=== PATIENT | male | born 1955 | race Caucasian/White ===

== ENCOUNTER 2017-05-14 13:27 | Inpatient (IN) | payer SELFPAY ==
[2017-05-14] MEDS ORDERED: NS 0.9% 1000 ML* 1,000 ML IV ONE ×3 (13:58→14:41)
[2017-05-14 14:26] LABS: ABS Basophils 0.1 10^3/ul (0-0.2); ABS Eosinophils 0.1 10^3/ul (0-0.6); ABS Lymphocytes 1.5 10^3/ul (1.0-4.8); ABS Monocytes 0.6 10^3/ul (0-0.8); ABS Neutrophils 4.1 10^3/ul (1.5-7.7); ABS Nucleated RBC 0 10^3/ul; Eosinophil % 1.3 % (0-6); Hematocrit 44 % (42-52); Hemoglobin 14.9 g/dl (14.0-18.0); Lymphocyte % 24.3 % (25-47); Mean Corpuscular HGB Conc 34 g/dl (31-36); Mean Corpuscular Hemoglobin 30 pg (27-31); Mean Corpuscular Volume 89 fL (80-94); Mean Platelet Volume 10 um3 (7.4-10.4); Nucleated Red Blood Cells % 0; Platelet Count 151 10^3/ul (150-450); Red Blood Count 4.91 10^6/ul (4.0-5.4); Red Cell Distribution Width 12 % (10.5-15); White Blood Count 6.3 10^3/ul (3.5-10.8)
--- NOTE | 2017-05-14 14:38 | RAD ---
Indication: Fall 2 days ago. LEFT side weakness. Recurrent fall today. Mental status change. Comparison: No relevant prior exams available on the [facility] for comparison. Technique: Noncontrast CT vertex of skull through foramen magnum. Report: Subtle ill-defined hypodensity at the posterior RIGHT frontal lobe and para midline anterior RIGHT frontal lobe white matter. Negative for sulcal effacement. Unremarkable ventricles and basal cisterns. Negative for intra or extra-axial hemorrhage or mass effect. Unremarkable visualized orbital contents. Negative for fracture or suspicious calvarial or skull base lesion. Clear visualized paranasal sinuses and mastoid air spaces. Negative for scalp hematoma. IMPRESSION: The constellation of findings is suspicious for foci of subacute ischemic infarct at the RIGHT frontal lobe involving both the anterior and middle cerebral artery distributions. Negative for mass effect or intracranial hemorrhage. Given involvement 2 vascular territories consider potential cardiac embolic source. Results discussed with Dr. Spence 05/14/2017 2:34 PM EST
[2017-05-14 14:40] LABS: EGFR Non-African American 56.3 (>60)
[2017-05-14] MEDS ORDERED: Aspirin TAB* 325 MG ONE (14:42)
[2017-05-14] MEDS: Aspirin TAB* 325 MG PO SCH (14:44)
[2017-05-14] MEDS ORDERED: Dextrose 50% Syringe 50 ML* 25 GM/50 ML SYRINGE IV PUSH PRN ×2 (15:08→15:19)
[2017-05-14] MEDS ORDERED: Insulin LISPRO* 1 UNITS UNIT SUBCUT ONE (15:08)
[2017-05-14] MEDS ORDERED: Acetaminophen TAB* 325 MG PO PRN (15:13)
[2017-05-14] MEDS ORDERED: Iodixanol* (CONTRAST) 320 MG/ML 100 ML SDV IV ONE (15:32)
[2017-05-14] MEDS ORDERED: Insulin GLARGINE(*) 1 UNITS UNIT SUBCUT SCH (16:00)
[2017-05-14] MEDS ORDERED: Labetalol IV* 5 MG/ML 20 ML VIAL ONE (16:18)
--- NOTE | 2017-05-14 16:20 | ED ---
Macie Maldonado Rebecca, scribed for Tomasz Spence MD on 05/14/17 at 1359 . Neurological HPI - HPI Summary HPI Summary: Pt is a 62 y/o M who presents to ED c/o L-sided weakness s/p fall. Pt reports that 2 days ago he had a "slow motion collapse, vertigo" with no associated head trauma. Pt c/o L-sided weakness in the UE and LE and "wobbly" gait. Describes the sensation as "toward the left I lose the ability to bear weight on the left arm and left leg." Friend additionally reports his mentation has been slow recently. This morning, the pt fell again during a evangelical service, during another "slow motion collapse" onto some chairs. Confirms he has been able to walk, despite the unsteadiness, walking to the service this morning. Does not take narcotics. PMHx DM, treated with Metformin. - History of Current Complaint Chief Complaint: EDNeurologicalDeficit Stated Complaint: VERTIGO Hx Obtained From: Patient Onset/Duration: Still Present Current Severity: None Pain Intensity: 0 Pain Scale Used: 0-10 Numeric Character: Weak - L-sided weakness, Other: - "Wobbly" gait Aggravating: Nothing Alleviating: Nothing Associated Signs and Symptoms: Positive: Unsteady Gait - "wobbly", Weakness - L- sided weakness - Allergy/Home Medications Allergies/Adverse Reactions: Allergies Allergy/AdvReac Type Severity Reaction Status Date / Time hydrochlorothiazide Allergy See Comment Verified 05/14/17 13:39 Home Medications: Home Medications Pseudoephedrine TAB* [Sudafed TAB*] 60 mg PO Q6H PRN 05/14/17 [History Confirmed 05/14/17] PMH/Surg Hx/FS Hx/Imm Hx Endocrine/Hematology History: Reports: Hx Diabetes Cardiovascular History: Reports: Hx Hypertension - Currently not on medication Denies: Hx Coronary Artery Disease Infectious Disease History: No Infectious Disease History: Denies: Traveled Outside the [place] in Last 30 Days - Family History Known Family History: Positive: Other - "long life" and "low incidence of cancer " - Social History Alcohol Use: None Substance Use Type: Reports: None Smoking Status (MU): Never Smoked Tobacco Review of Systems Positive: Other - Fall 2 days ago and today Neurological: Other - Slow mentation, "wobbly" gait Positive: Weakness - L-sided weakness All Other Systems Reviewed And Are Negative: Yes Physical Exam - Summary Physical Exam Summary: Appearance: Well-appearing, Well-nourished Skin: Warm, Dry, No rash Eyes: Normal, PERRL, EOMI, sclera anicteric ENT: Normal Neck: Supple, nontender Respiratory: Clear to auscultation Cardiovascular: S1, S2, no murmur, no rub, no gallop Abdomen: Soft, nontender, no organomegaly Bowel sounds: Present Musculoskeletal: ROM Intact, no edema, pulses symmetrical, slight weakness in the left machining associate Neurological: A&Ox3, cranial nerves II-XII WNL, follows commands, slight weakness in the left machining associate, slow on mentating and slow on responding, slightly tangential with speech Psychiatric: Odd affect, bizarre smiling while talking, dressed appropriately, judgment intact Triage Information Reviewed: Yes Vital Signs On Initial Exam: Initial Vitals Temp Pulse Resp BP Pulse Ox 97.7 F 90 17 181/78 98 05/14/17 13:34 05/14/17 13:34 05/14/17 13:34 05/14/17 13:34 05/14/17 13:34 Vital Signs Reviewed: Yes - Nancie Coma Scale Glascow Coma Scale Comments: 13: slow on responding, but he responds Diagnostics - Vital Signs Vital Signs Temp Pulse Resp BP Pulse Ox 05/14/17 13:34 97.7 F 90 17 181/78 98 - Laboratory Result Diagrams: 05/14/17 14:20 05/14/17 14:20 Lab Statement: Any lab studies that have been ordered have been reviewed, and results considered in the medical decision making process. - CT Brain CT CT Interpretation: Positive (See Comments) - The constellation of findings is suspicious for foci of subacute ischemic infarct at the RIGHT frontal lobe involving both the anterior and middle cerebral artery distributions. Negative for mass effect or intracranial hemorrhage. Given involvement 2 vascular territories consider potential cardiac embolic source. Results discussed with Dr. Spence 05/14/2017 2:[address] Spence reviewed radiology report. CT Interpretation Completed By: Radiologist - EKG 1444 Cardiac Rate: NL - 95 bpm EKG Rhythm: Sinus Rhythm EKG Interpretation: LVH Re-Evaluation - Re-Evaluation First Eval Re-Evaluation Time: 14:19 Comment: Pt has difficulty with simple calculation, seems indifferent to the fact he's in the hospital, and has odd behavior. Course/Dx - Course Assessment/Plan: Pt is a 62 y/o M who presents to ED c/o L-sided weakness s/p fall. Pt reports that 2 days ago he had a "slow motion collapse, vertigo" with no associated head trauma. Pt c/o L-sided weakness in the UE and LE and "wobbly " gait. Friend additionally reports his mentation has been slow. This morning, the pt fell again, another "slow motion collapse" onto some chairs. Confirms he has been able to walk, despite the unsteadiness, walking to a evangelical service this morning. Does not take narcotics. PMHx DM, treated with Metformin. Brain CT reveals The constellation of findings is suspicious for foci of subacute ischemic. infarct at the RIGHT frontal lobe involving both the anterior and middle cerebral artery. distributions with full findings above. EKG reveals LVH. Discussed care of pt with Dr. Saavedra (neurology) who advised ASA. Discussed care of pt with Dr. Kirk who accepts pt for admission. In the ED course, pt received fluids and ASA. Pt will be admitted with Dx of subacute CVA and hyperglycemia. He understands and agrees. Elevated BP noted. - Diagnoses Provider Diagnoses: Hyperglycemia, Subacute CVA - Physician Notifications Discussed Care Of Patient With: Giuliana Saavedra Time Discussed With Above Provider: 14:35 Instructed by Provider To: Other - Advised ASA. Discussed care of pt with Dr. Tere Kirk at 1440 who accepts pt for admission. Discharge - Discharge Plan Condition: Guarded Disposition: ADMITTED TO [facility] Referrals: No Primary Care Phys,NOPCP [Primary Care Provider] - The documentation as recorded by the Macie barr Rebecca accurately reflects the service I personally performed and the decisions made by me, Tomasz Spence MD.
[2017-05-14] MEDS: Labetalol IV* 5 MG/ML 20 ML VIAL IV PUSH PRN (16:22)
--- NOTE | 2017-05-14 16:50 | RAD ---
INDICATION: CT evidence for subacute ischemic infarct involving the RIGHT anterior and middle cerebral artery distribution corresponding with clinical presentation. COMPARISON: Noncontrast CT of the same date. TECHNIQUE: Multidetector CT images were obtained from the aortic arch to the vertex of the head with 80 mL Visipaque 320 IV contrast. Arterial phase of enhancement. Multiplanar reformation including maximum intensity projection. 3-D arterial volume rendering. Stenosis estimations based on denominator of distal arterial diameter. NECK ANGIOGRAM REPORT: Variant common origin of the LEFT common carotid and RIGHT brachiocephalic arteries from the aortic arch. Negative for ostial stenosis of the aortic arch branch vessels. Minimal calcific plaque at the RIGHT carotid bulb. Negative for RIGHT carotid stenosis. Mild calcific and noncalcific plaque at the LEFT carotid bulb and proximal internal carotid artery with only approximate 30% stenosis resulting. The patent RIGHT vertebral artery supplies the basilar artery. Markedly diminutive LEFT vertebral artery terminates at the LEFT posterior inferior cerebellar artery. C5-C6 and C6-C7 degenerative spondylosis with mild resulting central canal stenosis at C5-C6. NECK ANGIOGRAM IMPRESSION: 1. Mild atherosclerotic plaque. Negative for hemodynamic significant resulting carotid stenosis based on NASCET criteria. 2. The patent RIGHT vertebral artery supplies the basilar artery. Variant markedly diminutive LEFT vertebral artery terminates at the LEFT posterior inferior cerebellar artery. HEAD ANGIOGRAM REPORT: Patent intracranial internal carotid arteries and M1 and M2 segments of the middle cerebral arteries. Patent bilateral A1 anterior cerebral artery segments. No definitive anterior communicating artery visualized. Short segment high-grade stenosis of the RIGHT A2 segment at the level of the frontal horns of the lateral ventricles with limited flow distal to the stenosis. The LEFT A2 segment is patent. Diminutive patent basilar artery. The basilar artery terminates in the superior cerebellar arteries, a normal variant. The bilateral posterior cerebral arteries are patent and supplied by the anterior circulation via posterior communicating arteries. No intracranial aneurysm or vascular malformation evident. HEAD ANGIOGRAM IMPRESSION: 1. Short segment high-grade stenosis of the RIGHT A2 segment at the level of the frontal horns of the lateral ventricles with limited flow distal to the stenosis. 2. Negative for stenosis or occlusion of the M1 or M2 segments of the middle cerebral arteries. 3. Variant termination of the diminutive basilar artery at the superior cerebellar arteries with the patent posterior cerebral arteries supplied by the anterior circulation via patent posterior communicating arteries. CPT II: CPT II Codes: 3100F
[2017-05-14] MEDS: Atorvastatin* 80 MG TAB PO SCH (17:51)
[2017-05-14] MEDS: Insulin LISPRO* 1 UNITS UNIT SUBCUT SCH ×2 (17:51→22:10)
[2017-05-14] MEDS: NS 0.9% 1000 ML* 1,000 ML IV SCH (17:52)
--- NOTE | 2017-05-14 21:48 | HP ---
CC: Dr. Saavedra * HISTORY AND PHYSICAL: DATE OF ADMISSION: 05/14/17 PRIMARY CARE PROVIDER: None. CHIEF COMPLAINT: Falling to the left. HISTORY OF PRESENT ILLNESS: Rodolfo Lainez is a 62-year-old male with history of diabetes and hypertension for which the patient had not been routinely following with his primary care provider and treating with occasional metformin only. The patient stated that for the past 3 days, he has been dizzy and falling to the left. It started approximately 3 to 4 days of a sudden in the middle of the day when he fell first. Today, he was at religion when his friends noted that he fell again and he came into the ED for evaluation. His friends also noted that patient's mentation was " out off sorts." The patient himself does not recall to have any issues with his memory. He states that he gets dizzy when he falls to the left and when he tries to explain it, he basically is trying to explain that he is unsteady on his feet. He had been diabetic and hypertensive for several years now and he goes to [facility]. He admits to polydipsia and polyuria. He also admits to occasional blurry vision when his sugars are too high and to headaches when his blood pressure is too high. The patient is going to be admitted with a new diagnosis of ischemic CVA. PAST MEDICAL HISTORY: 1. Hypertension. 2. Diabetes. ALLERGIES: HYDROCHLOROTHIAZIDE. The patient cannot explain what happens when he takes the medication though. FAMILY HISTORY: The patient denies any history of cancer, diabetes, or heart disease in the family. SOCIAL HISTORY: The patient denies any tobacco, alcohol or drug use. He lives alone. His surrogate decision maker is his father, who lives in [place]. REVIEW OF SYSTEMS: Please see history of present illness. In addition to the above mentioned, the patient stated that he is urinating frequently and a lot. In fact, the patient needed to use a urinal in the middle of our conversation. Apart from the above mentioned and the ones mentioned in the history of present illness, all 12 systems were reviewed and otherwise negative. PHYSICAL EXAMINATION GENERAL: The patient is a very pleasant 62-year-old male, who is in no acute distress. His BMI is 28.9. The patient is alert, oriented x3. VITAL SIGNS: Blood pressure of 199/100, heart rate of 90 and regular, respiratory rate 16, oxygen saturation 95% on room air, temperature 97.7. HEENT: Head: Atraumatic, normocephalic. Eyes: Pupils are equal and reactive to light and accommodation. Oropharynx clear. Mucosa moist. NECK: Supple. No JVD. No bruits bilaterally. RESPIRATORY: Clear to auscultation bilaterally. CARDIOVASCULAR: Regular rate and rhythm. No murmur. ABDOMEN: Soft, nontender. Bowel sounds present in all 4 quadrants. EXTREMITIES: There is no edema. Pulses +2 bilaterally. No clubbing or cyanosis. NEUROLOGIC: On evaluation, speech is clear. Cranial nerves II through XII are grossly intact. Motor strength is mildly diminished in the left upper extremity. There is no diminished strength in bilateral lower extremities, but the patient has very unsteady gait and he leans to the left when walking. SKIN: On evaluation of the skin, no ecchymotic areas or rashes noted. PSYCHIATRIC: Alert and oriented x3 with no evidence of anxiety or depression. DIAGNOSTIC STUDIES/LAB DATA: Laboratory data showed white blood cell count of 6.3, hemoglobin of 14.9, hematocrit of 44, and platelets of 151. Sodium of 129, potassium of 4.8, chloride 96, carbon dioxide 27, BUN 26, creatinine 1.3. Liver function tests unremarkable. Glucose level 475. Brain CT impression: "The constellation of findings is suspicious for foci of subacute ischemic infarct in the right frontal lobe involving both the anterior and middle cerebral artery distributions. Negative for mass effect or intracranial hemorrhage. Given involvement of 2 vascular territories, consider potential cardioembolic source." The patient's EKG shows sinus tachycardia with a heart rate of 95 beats per minute with LVH, no ST changes. ASSESSMENT AND PLAN: 1. Ischemic cerebrovascular accident. The patient had right frontal ischemic cerebrovascular accident. The patient is going to be placed on inpatient admission. He had been swallowing fine during my evaluation. He does not require speech therapy evaluation. He is going to have physical therapy/ occupational therapy evaluation. He was already started on aspirin in the emergency department. Fasting lipid profile is going to be obtained in the morning. He is going to be placed on telemetry monitoring bed with neuro checks every 4 [address] I [address] ask Dr[address] Saavedra from Neurology to see the patient in consultation. We will also obtain a transthoracic echocardiogram with bubble study as well as CT angiogram of the head and neck to evaluate patient's vasculature. 2. In regards to uncontrolled diabetes, the patient's hyponatremia is most likely pseudohyponatremia due to patient's sugar level being above 400. The patient is going to be placed on Lantus as well as insulin sliding scale. Nutrition was asked to see the patient in regards to diabetic education diet. 3. In regards to patient's hypertension, the patient's systolic pressures have been in the 180s to 220 range. At this point, we will continue permissive hypertension. We will ask the nursing staff to call if his blood pressure is above 220. 4. In regards to potential dyslipidemia, fasting lipid profile is going to be obtained in the morning. 5. For DVT prophylaxis, the patient is at low risk and ambulation is going to be encouraged. 6. The patient's code status is full and his surrogate is his father. TIME SPENT: Approximately 70 minutes were spent on admission of this patient. More than half of that time was spent face to face with the patient during the interview and physical exam. [id number]/[facility] #: [id number] ADONAY
[2017-05-14] MEDS: Docusate CAP* 100 MG PO SCH (22:10)
[2017-05-15] MEDS: NS 0.9% 1000 ML* 1,000 ML IV SCH (04:41)
[2017-05-15 06:31] LABS: ABS Basophils 0.1 10^3/ul (0-0.2); ABS Eosinophils 0.2 10^3/ul (0-0.6); ABS Lymphocytes 1.9 10^3/ul (1.0-4.8); ABS Monocytes 0.4 10^3/ul (0-0.8); ABS Neutrophils 2.7 10^3/ul (1.5-7.7); ABS Nucleated RBC 0 10^3/ul; Eosinophil % 3.7 % (0-6); Hematocrit 40 % (42-52); Hemoglobin 13.6 g/dl (14.0-18.0); Lymphocyte % 35.9 % (25-47); Mean Corpuscular HGB Conc 34 g/dl (31-36); Mean Corpuscular Hemoglobin 30 pg (27-31); Mean Corpuscular Volume 89 fL (80-94); Mean Platelet Volume 10 um3 (7.4-10.4); Nucleated Red Blood Cells % 0; Platelet Count 143 10^3/ul (150-450); Red Cell Distribution Width 12 % (10.5-15); White Blood Count 5.3 10^3/ul (3.5-10.8)
[2017-05-15 06:42] LABS: EGFR Non-African American 79.9 (>60)
[2017-05-15] MEDS: Labetalol IV* 5 MG/ML 20 ML VIAL IV PUSH PRN (08:07)
[2017-05-15] MEDS: Docusate CAP* 100 MG PO SCH ×2 (08:08→20:24)
[2017-05-15] MEDS: Aspirin TAB* 325 MG PO SCH (08:08)
[2017-05-15] MEDS: Insulin LISPRO* 1 UNITS UNIT SUBCUT SCH ×4 (08:20→20:24)
[2017-05-15] MEDS: amLODIPine TAB* 5 MG PO SCH (11:00)
[2017-05-15] MEDS: Clopidogrel TAB* 75 MG PO SCH (12:45)
--- NOTE | 2017-05-15 15:52 | PN ---
Subjective Date of Service: 05/15/17 Interval History: Pt feels well, still unsteady on his feet Objective Active Medications: Acetaminophen (Tylenol Tab*) 650 mg PO Q4H PRN PRN Reason: FEVER/PAIN Amlodipine Besylate (Norvasc Tab*) 5 mg PO DAILY [facility] Last Admin: 05/15/17 11:00 Dose: 5 mg Aspirin (Aspirin Tab*) 325 mg PO DAILY [facility] Last Admin: 05/15/17 08:08 Dose: 325 mg Atorvastatin Calcium (Lipitor*) 80 mg PO 1700 [facility] Last Admin: 05/14/17 17:51 Dose: 80 mg Clopidogrel Bisulfate (Plavix Tab*) 75 mg PO DAILY [facility] Last Admin: 05/15/17 12:45 Dose: 75 mg Dextrose (D50w Syringe 50 Ml*) 12.5 gm IV PUSH .FOR FS < 60 - SS PRN PRN Reason: FS < 60 Dextrose (D50w Syringe 50 Ml*) 12.5 gm IV PUSH .FOR FS < 60 - SS PRN PRN Reason: FS < 60 Docusate Sodium (Colace Cap*) 100 mg PO BID [facility] Last Admin: 05/15/17 08:08 Dose: 100 mg Insulin Glargine (Lantus(*)) 15 units SUBCUT Q24H [facility] Insulin Human Lispro (Humalog*) 0 units SUBCUT ACHS [facility] PRN Reason: Protocol Last Admin: 05/15/17 12:45 Dose: 6 unit Labetalol HCl (Trandate Iv*) 5 mg IV PUSH Q6H PRN PRN Reason: BLOOD PRESSURE Last Admin: 05/15/17 08:07 Dose: 5 mg Vital Signs - 8 hr 05/15/17 05/15/17 08:00 11:01 Temperature 96.9 F Pulse Rate 78 Respiratory 16 16 Rate Blood Pressure 197/99 (mmHg) O2 Sat by Pulse 99 Oximetry Oxygen Devices in Use Now: None Appearance: 62 yo M in NAD, AAOx3 Eyes: No Scleral Icterus, PERRLA Ears/Nose/Mouth/Throat: NL Teeth, Lips, Gums, Mucous Membranes Moist Neck: NL Appearance and Movements; NL JVP, Trachea Midline Respiratory: Symmetrical Chest Expansion and Respiratory Effort, Clear to Auscultation Cardiovascular: NL Sounds; No Murmurs; No JVD, RRR Abdominal: NL Sounds; No Tenderness; No Distention Lymphatic: No Cervical Adenopathy Extremities: No Edema, No Clubbing, Cyanosis Skin: No Rash or Ulcers, No Nodules or Sclerosis Neurological: Alert and Oriented x 3, - - minimla left upper and lower extremity weakness, wide unsteady gait, speech clear, CN2-12 intact Result Diagrams: 05/15/17 06:15 05/15/17 06:15 Assess/Plan/Problems-Billing Assessment: 62 yo M with h/o DM, HTN with medical noncompliance presents with ischemic CVA - Patient Problems (1) CVA (cerebral vascular accident) Comment: ichemic, frontal. MRI for tomorrow CTA shows A2 stenosis. D/w Dr. Saavedra -cont ASA, added Plavix Echo in aM (2) Dyslipidemia Comment: lipitor started at admission (3) HTN (hypertension) Comment: SBP in 200's -will start Norvasc and start bringing it down slowly (4) DM2 (diabetes mellitus, type 2) Comment: HbA1C 12 cont ISS and Lantus. will start glipizide (5) DVT prophylaxis Comment: HSQ Status and Disposition: inpatient
[2017-05-15] MEDS: Insulin GLARGINE(*) 1 UNITS UNIT SUBCUT SCH (17:05)
[2017-05-15] MEDS: Atorvastatin* 80 MG TAB PO SCH (17:09)
[2017-05-15] MEDS: glipiZIDE TAB* 5 MG PO SCH (17:10)
--- NOTE | 2017-05-15 21:27 | CONS ---
CONSULTATION REPORT: DATE OF CONSULT: 05/15/17 LOCATION: He is currently in room 448, bed 2. PRIMARY CARE PROVIDER: He has no primary care provider. ATTENDING IN THE HOSPITAL: Dr. Tere Kirk. REASON FOR CONSULT: Falling to the left, left-sided weakness. HISTORY OF PRESENT ILLNESS: Mr. 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 He has a history of diabetes and hypertension and does not follow with a primary care provider regularly. He does take metformin occasionally, but not consistently. He states that he has been in his usual state of health when on , he was in the library and he suddenly fell to the left. He stated when he tried to get up, he could not. He was put in a whee lchair, taken home, and over the next day improved somewhat. He denied any headache, vision changes, speech difficulty. He denied any right-sided symptoms. He had no numbness or tingling in the left other than some diabetic peripheral neuropathy that he has had for a long time. He denied any nausea , vomiting, diarrhea, or constipation. He had no ringing in his ears or hearing loss. He noted no v ertigo, the room was not spinning. He states that he did feel weak in his left arm and leg, but when he got home, he was able to raise them antigravity and he felt stronger. On Tuesday, he improved, he had no new symptoms, but Tuesday, he was [facility] [employer], tried to go up to the front and had a diffic ult time ambulating up to the front without a rail. When he got up there, he seemed somewhat confuse d and had a difficult time coming down from the rail and he was subsequently brought to the ER. I di d speak with some friends of his today, who states that yesterday, he was much more confused, today h e is better, but he still does not seem himself. He seems to have a poor recall of these events, alt alonzo when reminded, he does remember them and is able to provide some details. He states that he no rmally goes to the [facility] in [place] when he needs acute care, but does not go regularly. He als o notes that he occasionally has blurry vision, but none currently. He notes that his blood pressure s run high at home and he sometimes gets headache from those. In the ER, he did have a head CT done. I did personally review the films, agreed with the finding. It appears that there is an area of hy perdensity in the right frontal lobe concerning for a new stroke, possibly involving both anterior an d middle cerebral artery distributions. He did have a head CTA done, I personally reviewed the films , shows short-segment high- grade stenosis of the right A2 segment at the level of the frontal horns of the lateral ventricle with limited flow distal to the stenosis, no M1 or M2 segment stenosis, vari ant termination of the diminutive basilar artery at the superior cerebellar arteries with patent post erior cerebral artery supplied by the anterior circulation via patent posterior communicating arterie s. Notable on admission, his blood sugar was 437, hemoglobin A1c of 12.0, subsequent blood sugars akins ve improved, most recently 246. He states that he does feel better today with no new issues, specifi lester denies any chest pain or palpitations as well. Has no history of cardiac issues. PAST MEDICAL HISTORY: As noted above. PAST SURGICAL HISTORY: He states that he personally excised a small tumor on his left index finger. FAMILY HISTORY: His paternal uncle had a stroke. No other family history of heart disease or other medical problems. SOCIAL HISTORY: Previous tobacco use, intermittent, quit about 3 years ago. No alcohol or drug use. He lives by himself. He does have some friends that help take care of him at times. REVIEW OF SYSTEMS: Fourteen-organ systems as noted above. Also polydipsia and polyuria; otherwise, negative. PHYSICAL EXAM: Vital Signs: Afebrile, current temp of 96.9, pulse rate in the 70s to 80s, respirato ry rate in the 16 to 20 range, pulse ox of 96% to 99%, blood pressures have been 142/80 to 186/93 to 210/96 to 197/99. In general, he is a well- nourished, well-developed gentleman, in no acute distres s. He is sitting in his hospital bed, some friends were at the bedside. HEENT: Normocephalic, atra umatic. Sclerae are anicteric. Mucous membranes are moist. Oropharynx is clear. Nares are patent. Neck is supple. No thyromegaly. No carotid bruits. No meningismus. Chest: Clear to auscultation bilaterally. Cardiovascular: Regular rate and rhythm without murmurs. Abdomen: Nontender. Extrem ities: No clubbing, cyanosis, or edema. He does have a mild excoriation lesion on his left knee, wh ich is healing. On neurologic exam, he is awake, alert, and oriented x3. His speech is full and the re is no dysarthria. Repetition is intact. Recall of recent event is somewhat impaired, although he does recall with cueing the events of the last several days. His cranial nerves, pupils are equal, round, and reactive to light. Extraocular muscles are intact. Visual vallejo are full. No nystagmus is appreciated. Face is symmetric. Facial sensation is intact bilaterally. Tongue is midline. Hea ring is intact bilaterally. Palate raises symmetrically. Sternocleidomastoid and trapezius 5/5. Mot or Exam: He spontaneously moves all extremities antigravity. He is 5/5 on the right. In the left u pper extremity, he is 4+/5 proximally, 4+/5 distally in the left upper extremity with some very subtl e drift. In the left lower extremity, he is 4+/5 proximally and distally with subtle drift. On the right lower extremity, he has 5/5 tone and bulk, both normal. Sensation: He has loss of all modaliti es in the feet to the shins bilaterally; otherwise, intact. Pzydjn-bi-bwxb, rapid alternating moveme nts, there is some mild intention tremor bilaterally. There is no evidence of dysdiadochokinesia or dysmetria. Zmqh-do-oxeg and igovzs-xf-symr are both intact. DTRs are 1+ and symmetric in the upper extremities, 2+ at the right patella, 3+ at the left patella, trace at the ankles bilaterally, downgo ing Babinski's. Gait: He is slightly wide based, although he is able to stand and his Romberg had n o sway with eyes open, minimal sway with eyes closed. He was able to ambulate without difficulty by himself. DIAGNOSTIC STUDIES/LAB DATA: Imaging as noted above. Additional lab work includes a CBC with diff with a hemoglobin of 13.6, hematocrit of 40, platelet co unt of 143, lymphocyte percent of 24.3. Carbon monoxide screen less than 4. His triglycerides of 19 0, cholesterol of 263, LDL of 194, HDL of 41.4. His hemoglobin A1c was 12.0. ASSESSMENT: Mr. Lainez is a 62-year-old gentleman with a history of hypertension and diabetes, poor ly controlled. His hemoglobin A1c is elevated. His blood pressures have been elevated. He presents to the hospital with most likely a right anterior cerebral artery distribution stroke with resultant left-sided weakness and gait difficulty. I see no evidence for a cerebellar stroke on the left, alt alonzo MRI is pending, we will get that tomorrow. CT angiogram shows high-grade stenosis at the right A2 segment. PLAN: 1. Continue aspirin. We will add Plavix. I would like him to be on dual- antiplatelet therapy give n the high-grade stenosis. 2. Blood pressure control. I would slowly lower his blood pressure, but I would keep it at the high normal limit given the high-grade stenosis in his anterior circulation, precipitous drops in his blo od pressure could cause worsening ischemic damage in that distribution. 3. High blood sugar control. I defer to his treating hospitalist. 4. He is a nonsmoker. 5. He is now on statin, high dose, 80 mg of Lipitor. Goal LDL will be less than 70. 6. He will need physical therapy, although he does seem improved today, we will get them to evaluate . 7. He will need Social Work help given the fact that he lives alone and has no insurance with [employer] income. The plan will be to get an MRI tomorrow to confirm his stroke. 8. Echocardiogram today to look for any embolic source of stroke. We will continue to follow him cl osely in the hospital and make further recommendations as necessary. Thank you for the opportunity to participate in the care of this very interesting patient. [id number]/[facility] #: [id number]
--- NOTE | 2017-05-16 05:50 | PN ---
Subjective Date of Service: 05/16/17 Interval History: No new issues overnight. The patient is sitting comfortably in bed, reading on his computer. Denies any complaints. States that he has been ambulating to the bathroom and not feeling like he is going to fall over. Denies any headache , right sided symptoms, new numbness, tingling or weakness. Objective Active Medications: Acetaminophen (Tylenol Tab*) 650 mg PO Q4H PRN PRN Reason: FEVER/PAIN Amlodipine Besylate (Norvasc Tab*) 5 mg PO DAILY [facility] Last Admin: 05/15/17 11:00 Dose: 5 mg Aspirin (Aspirin Tab*) 325 mg PO DAILY [facility] Last Admin: 05/15/17 08:08 Dose: 325 mg Atorvastatin Calcium (Lipitor*) 80 mg PO 1700 [facility] Last Admin: 05/15/17 17:09 Dose: 80 mg Clopidogrel Bisulfate (Plavix Tab*) 75 mg PO DAILY [facility] Last Admin: 05/15/17 12:45 Dose: 75 mg Dextrose (D50w Syringe 50 Ml*) 12.5 gm IV PUSH .FOR FS < 60 - SS PRN PRN Reason: FS < 60 Dextrose (D50w Syringe 50 Ml*) 12.5 gm IV PUSH .FOR FS < 60 - SS PRN PRN Reason: FS < 60 Docusate Sodium (Colace Cap*) 100 mg PO BID [facility] Last Admin: 05/15/17 20:24 Dose: 100 mg Glipizide (Glucotrol Tab*) 2.5 mg PO 0800,1700 [facility] Last Admin: 05/15/17 17:10 Dose: 2.5 mg Insulin Glargine (Lantus(*)) 15 units SUBCUT Q24H [facility] Last Admin: 05/15/17 17:05 Dose: 15 units Insulin Human Lispro (Humalog*) 0 units SUBCUT ACHS [facility] PRN Reason: Protocol Last Admin: 05/15/17 20:24 Dose: 2 unit Labetalol HCl (Trandate Iv*) 5 mg IV PUSH Q6H PRN PRN Reason: BLOOD PRESSURE Last Admin: 05/15/17 08:07 Dose: 5 mg Vital Signs 05/15/17 05/15/17 05/15/17 07:40 08:00 11:01 Temperature 97.8 F 96.9 F Pulse Rate 74 78 Respiratory 16 16 16 Rate Blood Pressure 210/96 197/99 (mmHg) O2 Sat by Pulse 96 99 Oximetry 05/15/17 05/15/17 05/15/17 15:22 19:24 20:00 Temperature 98.6 F 99.1 F Pulse Rate 95 86 Respiratory 20 20 20 Rate Blood Pressure 179/73 166/75 (mmHg) O2 Sat by Pulse 96 95 Oximetry 05/16/17 00:02 Temperature 98.4 F Pulse Rate 74 Respiratory 20 Rate Blood Pressure 160/71 (mmHg) O2 Sat by Pulse 96 Oximetry Oxygen Devices in Use Now: None Neurology Exam: General: Awake, Alert, Oriented x3 HEENT: Normocephalic/atraumatic, sclera anicteric, mucous membranes moist Neck: Supple Chest: Clear to auscultation bilaterally Cardiovascular: Regular rate and rhythm without murmurs, rubs, gallops Abdomen: Soft, nontender/nondistended Extremities: No edema Neurological Findings: Awake, Alert, Oriented x3 Speech: fluent without dysarthria Cranial Nerve: PEERL, EOM intact, VFF, no nystagmus, face symmetric bilaterally , facial sensation intact, hearing intact to finger rub bilaterally, palate elevates symmetrically, tongue midline. Motor: 5/5 throughout, proximal and distal extremities x4 tone/bulk normal, no drift Sensation: Loss of all modalities in the feet to shins bilaterally, otherwise intact to LT/PP Deep Tendon Reflex: 1+ symmetric in the upper/lower extremities, trace at ankles Finger to nose, rapid alternating movements intact without tremor Result Diagrams: 05/15/17 06:15 05/15/17 06:15 Assessment/Plan Mr. Lainez is a 62-year-old gentleman with a history of hypertension and diabetes, poorly controlled. He presents to the hospital with most likely a right anterior cerebral artery distribution stroke with resultant left-sided weakness and gait difficulty. CT angiogram shows high-grade stenosis at the right A2 segment. - Patient Problems (1) CVA (cerebral vascular accident) Current Visit: Yes Status: Acute Priority: High Code(s): I63.9 - CEREBRAL INFARCTION, UNSPECIFIED SNOMED Code(s): 552501945 Comment: --MRI this am --Echo today --Continue ASA/Plavix: dual antiplatelet given high grade stenosis --High dose statin --Slowly lower BPs, maintain baseline in high normal range 130s/80s, given high grade stenosis --Labs to rule out reversible causes of stroke --PT/OT --Social work for discharge planning
[2017-05-16] MEDS: Clopidogrel TAB* 75 MG PO SCH (08:31)
[2017-05-16] MEDS: glipiZIDE TAB* 5 MG PO SCH ×2 (08:31→17:11)
[2017-05-16] MEDS: Insulin LISPRO* 1 UNITS UNIT SUBCUT SCH ×4 (08:31→20:47)
[2017-05-16] MEDS: amLODIPine TAB* 5 MG PO SCH (08:31)
[2017-05-16] MEDS: Aspirin TAB* 325 MG PO SCH (08:31)
[2017-05-16] MEDS: Docusate CAP* 100 MG PO SCH ×2 (08:32→20:50)
--- NOTE | 2017-05-16 12:10 | ECHO ---
Patient: SUSHIL DUBOSE [facility] Rec#: [id number] : 1955 Date: 05/16/2017 Age: 62y Height: 172.72 cm / 68.0 in Weight: 86.18 kg / 189.9 lbs Sex: M BSA: 2 Room#: [facility] Admit Date#: 05/14/2017 Type: Inpatient Referring: Tere Kirk MD Reading: Eladio Tidwell MD [employer] Estimator: Rosalba Velasquez RD,RDMS Transthoracic Echocardiogram Indication: CVA BP: 178/88 HR: 84 Rhythm: NSR Findings History: Previously healthy Technical Comments: The study quality is good. Left Ventricle: The left ventricular chamber size is normal. Mild to moderate concentric left ventricular hypertrophy is observed. Global left ventricular wall motion and contractility are within normal limits. There is normal left ventricular systolic function. The estimated ejection fraction is 55-60%. There is an E to A reversal in the mitral valve flow pattern suggestive of diastolic dysfunction. Left Atrium: The left atrial chamber size is normal. Right Ventricle: The right ventricular chamber size and systolic function are within normal limits. Right Atrium: The right atrial cavity size is normal. The bubble study is negative. A patent foramen ovale is not demonstrated with color Doppler and agitated contrast. Aortic Valve: The aortic valve is trileaflet. Systolic excursion of the aortic valve is normal. There is no evidence of aortic regurgitation. There is no evidence of aortic stenosis. Mitral Valve: The mitral valve leaflets appear normal. There is a trace of mitral regurgitation. There is no evidence of mitral stenosis. Tricuspid Valve: The tricuspid valve leaflets are normal. There is trace tricuspid regurgitation. Unable to estimate the right ventricular systolic pressure. Pulmonic Valve: The pulmonic valve appears normal. There is a trace pulmonic regurgitation. Pericardium: There is no significant pericardial effusion. Aorta: The aortic root appears normal. There is no dilatation of the aortic arch. Pulmonary Artery: The main pulmonary artery appears normal. Venous: The inferior vena cava appears normal in size. There is an approximate 50% respiratory change in the inferior vena cava dimension. Contrast: Intravenous agitated saline contrast was used to assess intracardiac shunting. Images 46 and 47 Conclusions Mild to moderate concentric left ventricular hypertrophy is observed. Global left ventricular wall motion and contractility are within normal limits. There is normal left ventricular systolic function. The estimated ejection fraction is 55-60%. A patent foramen ovale is not demonstrated with color Doppler and agitated contrast. There is no evidence of aortic stenosis. There is a trace of mitral regurgitation. There is trace tricuspid regurgitation. Unable to estimate the right ventricular systolic pressure. There is no significant pericardial effusion. Measurements Name Value Normal Range RVIDd (AP) 2D 2.8 cm (0.9 - 2.6) RVDdMajor (2D) 2.8 cm (2.2 - 4.4) RAd ISD 4CH 4.5 cm (3.4 - 4.9) RA (A4C)W 4.1 cm (2.9 - 4.6) IVSd (2D) 1.5 cm (0.6 - 1) LVPWd (2D) 1.6 cm (0.6 - 1) LVIDd (2D) 4.2 cm (3.6 - 5.4) LVIDs (2D) 2.2 cm - LV FS (2D) 46 % (25 - 45) Aortic Annulus 2.1 cm (1.4 - 2.6) Ao root diameter (2D) 2.7 cm (2.1 - 3.5) Ascending Ao 2.9 cm (2.1 - 3.4) Aortic arch 2.9 cm (1.8 - 3.4) LA dimension (AP) 2D 4.3 cm (2.3 - 3.8) LAd ISD 4CH 4.8 cm (2.9 - 5.3) LA ISD 4CH W 4.2 cm (2.5 - 4.5) Name Value Normal Range LA ESV SP 4CH (A/L) 58.98 ml - LA ESV SP 2CH (A/L) 42.06 ml - LA ESV BP (A/L) 52.32 ml - LA ESV BP (A/L) index 26 ml/m2 - LA ESV SP 4CH (MOD) 54.01 ml - LA ESV SP 2CH (MOD) 39.26 ml - LV EDV SP 4CH (MOD) 59.57 ml - LV ESV SP 4CH (MOD) 17.83 ml - EF SP 4CH (MOD) 70.06 % - LV EDV SP 2CH (MOD) 43.37 ml - LV ESV SP 2CH (MOD) 19.73 ml - EF SP 2CH (MOD) 54.51 % - LV EDV BP 55.32 ml - LV ESV BP 19.09 ml - BP EF (MOD) 65 % - Name Value Normal Range MV E-wave Vmax 0.6 m/sec - MV deceleration time 184 msec - MV A-wave Vmax 0.9 m/sec - MV E:A ratio 0.7 ratio - P. vein S-wave Vmax 0.6 m/sec - P. vein D-wave Vmax 0.3 m/sec - P. vein S:D Vmax ratio 1.8 ratio - P. vein A-wave duration 105 msec - LV lateral e' Vmax 0.06 m/sec - LV E:e' lateral ratio 10 ratio - Name Value Normal Range AV Vmax 1.3 m/sec - AV VTI 23.5 cm - AV peak gradient 7 mmHg - AV mean gradient 4 mmHg - LVOT Vmax 1.1 m/sec - LVOT VTI 20 cm - LVOT peak gradient 5 mmHg - LVOT mean gradient 2.7 mmHg - JANA Vmax 0.9 m/sec - Name Value Normal Range RAP 8 mmHg - IVC diameter 1.7 cm - Name Value Normal Range PV Vmax 1 m/sec - PV peak gradient 4 mmHg -
--- NOTE | 2017-05-16 12:12 | RAD ---
HISTORY: Right frontal stroke COMPARISONS: Head CT dated May 14, 2012 TECHNIQUE: The following sequences were obtained of the head: Sagittal T1-weighted images, axial T2-weighted images, axial FLAIR images, axial susceptibility weighted images, axial T1-weighted images. Additionally, axial diffusion-weighted images were obtained with calculated apparent diffusion coefficients. FINDINGS: HEMORRHAGE/INFARCT: There are multiple scattered and confluent foci of restricted diffusion of the right frontal and anterior parietal lobes within the right MEGAN territory consistent with subacute nonhemorrhagic infarct. Elsewhere, there is no hemorrhage or acute infarct. MASSES/SHIFT: There is no mass or shift. EXTRA-AXIAL SPACES/MENINGES: There are no extra-axial fluid collections. SULCI AND VENTRICLES: The sulci and ventricles are normal in size and position for the patient's stated age. CEREBRUM: There is elevated T2/FLAIR signal within the right frontal and anterior parietal lobes corresponding to there is restricted diffusion. BRAINSTEM: There are no focal parenchymal abnormalities. CEREBELLUM: There is a chronic appearing infarct of the right cerebellar hemisphere. The cerebellar tonsils are normal in size and position. SELLA: The sella is normal. PINEAL: The pineal region is clear. CP ANGLE/TEMPORAL BONES: The labyrinthine structures are grossly normal. VESSELS: Normal flow-voids are noted within the visualized vertebral vasculature. DIFFUSION ABNORMALITIES: As noted above, there are multiple foci of restricted diffusion within the right frontal and parietal lobes corresponding to the right anterior cerebral artery distribution PARANASAL SINUSES/MASTOIDS: The paranasal sinuses are clear. ORBITS: The orbits are unremarkable. BONES AND SOFT TISSUE: No bone or soft tissue abnormalities are noted. OTHER: None IMPRESSION: MULTIPLE FOCI OF RESTRICTED DIFFUSION CONSISTENT WITH SUBACUTE NONHEMORRHAGIC INFARCTS OF THE RIGHT FRONTAL AND ANTERIOR PARIETAL LOBES CORRESPONDING TO THE RIGHT ANTERIOR CEREBRAL ARTERY DISTRIBUTION
--- NOTE | 2017-05-16 15:20 | PN ---
Subjective Date of Service: 05/16/17 Interval History: Feels well today. PT cleared to ambulate with a walker Objective Active Medications: Acetaminophen (Tylenol Tab*) 650 mg PO Q4H PRN PRN Reason: FEVER/PAIN Amlodipine Besylate (Norvasc Tab*) 10 mg PO DAILY [facility] Aspirin (Aspirin Tab*) 325 mg PO DAILY [facility] Last Admin: 05/16/17 08:31 Dose: 325 mg Atorvastatin Calcium (Lipitor*) 80 mg PO 1700 [facility] Last Admin: 05/15/17 17:09 Dose: 80 mg Clopidogrel Bisulfate (Plavix Tab*) 75 mg PO DAILY [facility] Last Admin: 05/16/17 08:31 Dose: 75 mg Dextrose (D50w Syringe 50 Ml*) 12.5 gm IV PUSH .FOR FS < 60 - SS PRN PRN Reason: FS < 60 Docusate Sodium (Colace Cap*) 100 mg PO BID [facility] Last Admin: 05/16/17 08:32 Dose: Not Given Glipizide (Glucotrol Tab*) 2.5 mg PO 0800,1700 [facility] Last Admin: 05/16/17 08:31 Dose: 2.5 mg Insulin Glargine (Lantus(*)) 15 units SUBCUT Q24H [facility] Last Admin: 05/15/17 17:05 Dose: 15 units Insulin Human Lispro (Humalog*) 0 units SUBCUT ACHS [facility] PRN Reason: Protocol Last Admin: 05/16/17 12:50 Dose: 2 unit Labetalol HCl (Trandate Iv*) 5 mg IV PUSH Q6H PRN PRN Reason: BLOOD PRESSURE Last Admin: 05/15/17 08:07 Dose: 5 mg Oseltamivir Phosphate (Tamiflu Cap*) 75 mg PO Q24H [facility] Stop: 05/25/17 15:01 Vital Signs - 8 hr 05/16/17 05/16/17 05/16/17 07:31 08:00 10:51 Temperature 98.5 F 98.0 F Pulse Rate 78 85 Respiratory 18 16 18 Rate Blood Pressure 170/111 162/122 (mmHg) O2 Sat by Pulse 98 98 Oximetry Oxygen Devices in Use Now: None Appearance: 62 yo M in NAD, AAOx3 Eyes: No Scleral Icterus, PERRLA Ears/Nose/Mouth/Throat: NL Teeth, Lips, Gums, Mucous Membranes Moist Neck: NL Appearance and Movements; NL JVP, Trachea Midline Respiratory: Symmetrical Chest Expansion and Respiratory Effort, Clear to Auscultation Cardiovascular: NL Sounds; No Murmurs; No JVD, RRR Abdominal: NL Sounds; No Tenderness; No Distention, No Hepatosplenomegaly Lymphatic: No Cervical Adenopathy Extremities: No Edema, No Clubbing, Cyanosis Skin: No Rash or Ulcers, No Nodules or Sclerosis Neurological: Alert and Oriented x 3, - - minimal left sided weakness in UE and LE Result Diagrams: 05/15/17 06:15 05/15/17 06:15 Assess/Plan/Problems-Billing Mr. Lainez is a 62-year-old gentleman with a history of hypertension and diabetes, poorly controlled. He presents to the hospital with most likely a right anterior cerebral artery distribution stroke with resultant left-sided weakness and gait difficulty. CT angiogram shows high-grade stenosis at the right A2 segment. - Patient Problems (1) CVA (cerebral vascular accident) Comment: MRI this am showed multiple CVA's in R hemisphere-likely thromboembolic Echo showed EF 55-60% no PFO Continue ASA/Plavix: dual antiplatelet given high grade stenosis High dose statin --Labs to rule out reversible causes of stroke --Social work for discharge planning (2) Dyslipidemia Comment: lipitor started at admission (3) HTN (hypertension) Comment: Norvasc will be increased today (4) DM2 (diabetes mellitus, type 2) Comment: HbA1C 12 started glipizide (5) DVT prophylaxis Comment: HSQ Status and Disposition: inpatient. PT cleared to go home with PT, but pt lives on [address]rd floor and has no insurance Pt has h/o contact with Flu positive person and will start Influenza prophylaxis with Tamiflu
[2017-05-16] MEDS: Insulin GLARGINE(*) 1 UNITS UNIT SUBCUT SCH (17:11)
[2017-05-16] MEDS: Oseltamivir CAP* 75 MG CAP PO SCH (17:11)
[2017-05-16] MEDS: Atorvastatin* 80 MG TAB PO SCH (17:11)
[2017-05-17] MEDS: Aspirin TAB* 325 MG PO SCH (08:03)
[2017-05-17] MEDS: Insulin LISPRO* 1 UNITS UNIT SUBCUT SCH ×4 (08:04→23:28)
[2017-05-17] MEDS: Clopidogrel TAB* 75 MG PO SCH (08:04)
[2017-05-17] MEDS: amLODIPine TAB* 5 MG PO SCH (08:04)
[2017-05-17] MEDS: glipiZIDE TAB* 5 MG PO SCH ×2 (08:04→16:44)
[2017-05-17] MEDS: Docusate CAP* 100 MG PO SCH ×2 (08:05→21:30)
[2017-05-17] MEDS: Lisinopril TAB* 10 MG PO SCH (09:58)
[2017-05-17] MEDS: Oseltamivir CAP* 75 MG CAP PO SCH (15:04)
--- NOTE | 2017-05-17 16:10 | PN ---
Subjective Date of Service: 05/17/17 Interval History: Pt feels better everyday. PT ongoing, unable to do stairs by himself Objective Active Medications: Acetaminophen (Tylenol Tab*) 650 mg PO Q4H PRN PRN Reason: FEVER/PAIN Amlodipine Besylate (Norvasc Tab*) 10 mg PO DAILY COUNT INCLUDES THE [facility] Last Admin: 05/17/17 08:04 Dose: 10 mg Aspirin (Aspirin Tab*) 325 mg PO DAILY COUNT INCLUDES THE [facility] Last Admin: 05/17/17 08:03 Dose: 325 mg Atorvastatin Calcium (Lipitor*) 80 mg PO 1700 COUNT INCLUDES THE [facility] Last Admin: 05/16/17 17:11 Dose: 80 mg Clopidogrel Bisulfate (Plavix Tab*) 75 mg PO DAILY COUNT INCLUDES THE [facility] Last Admin: 05/17/17 08:04 Dose: 75 mg Dextrose (D50w Syringe 50 Ml*) 12.5 gm IV PUSH .FOR FS < 60 - SS PRN PRN Reason: FS < 60 Docusate Sodium (Colace Cap*) 100 mg PO BID COUNT INCLUDES THE [facility] Last Admin: 05/17/17 08:05 Dose: Not Given Glipizide (Glucotrol Tab*) 5 mg PO 0800,1700 COUNT INCLUDES THE [facility] Insulin Glargine (Lantus(*)) 15 units SUBCUT Q24H COUNT INCLUDES THE [facility] Stop: 05/17/17 23:59 Last Admin: 05/16/17 17:11 Dose: 15 units Insulin Human Lispro (Humalog*) 0 units SUBCUT ACHS COUNT INCLUDES THE [facility] PRN Reason: Protocol Last Admin: 05/17/17 11:59 Dose: 4 unit Labetalol HCl (Trandate Iv*) 5 mg IV PUSH Q6H PRN PRN Reason: BLOOD PRESSURE Last Admin: 05/15/17 08:07 Dose: 5 mg Lisinopril (Prinivil Tab*) 10 mg PO DAILY COUNT INCLUDES THE [facility] Last Admin: 05/17/17 09:58 Dose: 10 mg Oseltamivir Phosphate (Tamiflu Cap*) 75 mg PO Q24H COUNT INCLUDES THE [facility] Stop: 05/25/17 15:01 Last Admin: 05/17/17 15:04 Dose: 75 mg Vital Signs - 8 hr 05/17/17 11:06 Temperature 97.0 F Pulse Rate 81 Respiratory 16 Rate Blood Pressure 137/75 (mmHg) O2 Sat by Pulse 98 Oximetry Oxygen Devices in Use Now: None Appearance: 62 yo M in nAD, AAOx3 Eyes: No Scleral Icterus, PERRLA Ears/Nose/Mouth/Throat: NL Teeth, Lips, Gums, Mucous Membranes Moist Neck: NL Appearance and Movements; NL JVP, Trachea Midline Respiratory: Symmetrical Chest Expansion and Respiratory Effort, Clear to Auscultation Cardiovascular: NL Sounds; No Murmurs; No JVD, RRR Abdominal: NL Sounds; No Tenderness; No Distention Lymphatic: No Cervical Adenopathy Extremities: No Edema, No Clubbing, Cyanosis Skin: No Rash or Ulcers, No Nodules or Sclerosis Neurological: Alert and Oriented x 3, - - minimal L side weakness and unsteady gait Result Diagrams: 05/15/17 06:15 05/15/17 06:15 Assess/Plan/Problems-Billing Mr. Lainez is a 62-year-old gentleman with a history of hypertension and diabetes, poorly controlled. He presents to the hospital with most likely a right anterior cerebral artery distribution stroke with resultant left-sided weakness and gait difficulty. CT angiogram shows high-grade stenosis at the right A2 segment. - Patient Problems (1) CVA (cerebral vascular accident) Comment: MRI showed multiple CVA's in R hemisphere-likely atheroembolic Echo showed EF 55-60% no PFO Continue ASA/Plavix: dual antiplatelet given high grade stenosis High dose statin --Labs to rule out reversible causes of stroke (homocysteine, CONCEPCION levels-pending ) --Social work for discharge planning (2) Dyslipidemia Comment: lipitor started at admission (3) HTN (hypertension) Comment: Norvasc cont, lisinopril added today (4) DM2 (diabetes mellitus, type 2) Comment: HbA1C 12 increasing glipizide and will d/c Lantus. Pt could also be placed on add on metformin if needed (5) DVT prophylaxis Comment: HSQ Status and Disposition: inpatient. PT cleared to go home with PT, but pt lives on [address] floor and has no insurance Pt has h/o contact with Flu positive person and was placed on Influenza prophylaxis with Tamiflu
[2017-05-17] MEDS: Atorvastatin* 80 MG TAB PO SCH (16:44)
[2017-05-17] MEDS: Insulin GLARGINE(*) 1 UNITS UNIT SUBCUT SCH (16:44)
[2017-05-17] MEDS ORDERED: Dextrose 50% Syringe 50 ML* 25 GM/50 ML SYRINGE IV PUSH PRN (22:53)
[2017-05-17] MEDS ORDERED: Insulin LISPRO* 1 UNITS UNIT SUBCUT ONE (22:53)
[2017-05-18] MEDS: Aspirin TAB* 325 MG PO SCH (09:16)
[2017-05-18] MEDS: amLODIPine TAB* 5 MG PO SCH (09:17)
[2017-05-18] MEDS: Docusate CAP* 100 MG PO SCH ×2 (09:17→20:09)
[2017-05-18] MEDS: glipiZIDE TAB* 5 MG PO SCH ×2 (09:17→17:38)
[2017-05-18] MEDS: Lisinopril TAB* 10 MG PO SCH (09:17)
[2017-05-18] MEDS: Insulin LISPRO* 1 UNITS UNIT SUBCUT SCH ×4 (09:18→20:25)
[2017-05-18] MEDS: Clopidogrel TAB* 75 MG PO SCH (09:18)
--- NOTE | 2017-05-18 16:33 | PN ---
Subjective Date of Service: 05/18/17 Interval History: Pt feels well. ambulated without support, still impulsive. Had a meeting with medicaid adviser and is applying for insurance Objective Active Medications: Acetaminophen (Tylenol Tab*) 650 mg PO Q4H PRN PRN Reason: FEVER/PAIN Amlodipine Besylate (Norvasc Tab*) 10 mg PO DAILY [facility] Last Admin: 05/18/17 09:17 Dose: 10 mg Aspirin (Aspirin Tab*) 325 mg PO DAILY [facility] Last Admin: 05/18/17 09:16 Dose: 325 mg Atorvastatin Calcium (Lipitor*) 80 mg PO 1700 [facility] Last Admin: 05/17/17 16:44 Dose: 80 mg Clopidogrel Bisulfate (Plavix Tab*) 75 mg PO DAILY [facility] Last Admin: 05/18/17 09:18 Dose: 75 mg Dextrose (D50w Syringe 50 Ml*) 12.5 gm IV PUSH .FOR FS < 60 - SS PRN PRN Reason: FS < 60 Docusate Sodium (Colace Cap*) 100 mg PO BID [facility] Last Admin: 05/18/17 09:17 Dose: 100 mg Glipizide (Glucotrol Tab*) 5 mg PO 0800,1700 [facility] Last Admin: 05/18/17 09:17 Dose: 5 mg Insulin Human Lispro (Humalog*) 0 units SUBCUT ACHS [facility] PRN Reason: Protocol Last Admin: 05/18/17 12:52 Dose: 1 unit Labetalol HCl (Trandate Iv*) 5 mg IV PUSH Q6H PRN PRN Reason: BLOOD PRESSURE Last Admin: 05/15/17 08:07 Dose: 5 mg Lisinopril (Prinivil Tab*) 10 mg PO DAILY [facility] Last Admin: 05/18/17 09:17 Dose: 10 mg Oseltamivir Phosphate (Tamiflu Cap*) 75 mg PO Q24H [facility] Stop: 05/25/17 15:01 Last Admin: 05/17/17 15:04 Dose: 75 mg Vital Signs - 8 hr 05/18/17 10:59 Temperature 98.0 F Pulse Rate 74 Respiratory 18 Rate Blood Pressure 150/73 (mmHg) O2 Sat by Pulse 98 Oximetry Oxygen Devices in Use Now: None Appearance: 62 yo M in nAD, AAOx3 Eyes: No Scleral Icterus, PERRLA Ears/Nose/Mouth/Throat: NL Teeth, Lips, Gums, Mucous Membranes Moist Neck: NL Appearance and Movements; NL JVP, Trachea Midline Respiratory: Symmetrical Chest Expansion and Respiratory Effort, Clear to Auscultation Cardiovascular: NL Sounds; No Murmurs; No JVD, RRR Abdominal: NL Sounds; No Tenderness; No Distention, No Hepatosplenomegaly Lymphatic: No Cervical Adenopathy Extremities: No Edema, No Clubbing, Cyanosis Skin: No Rash or Ulcers, No Nodules or Sclerosis Neurological: Alert and Oriented x 3, - - gait, steady, left arm minimally weaker Result Diagrams: 05/15/17 06:15 05/15/17 06:15 Assess/Plan/Problems-Billing Mr. Lainez is a 62-year-old gentleman with a history of hypertension and diabetes, poorly controlled. He presents to the hospital with most likely a right anterior cerebral artery distribution stroke with resultant left-sided weakness and gait difficulty. CT angiogram shows high-grade stenosis at the right A2 segment. - Patient Problems (1) CVA (cerebral vascular accident) Comment: MRI showed multiple CVA's in R hemisphere-likely atheroembolic Echo showed EF 55-60% no PFO Continue ASA/Plavix: dual antiplatelet given high grade stenosis High dose statin --Labs to rule out reversible causes of stroke (homocysteine-pending, CONCEPCION level at 2.1-weak positive) --Social work for discharge planning (2) Dyslipidemia Comment: lipitor started at admission (3) HTN (hypertension) Comment: fairly controlled with lisonpril and norvasc (4) DM2 (diabetes mellitus, type 2) Comment: HbA1C 12 BG in 130's on glipizide (5) DVT prophylaxis Comment: HSQ Status and Disposition: inpatient. PT cleared to go home with PT, but pt lives on [address] floor and has no insurance. Medicaid application pending, suspect pt will be able to go home in the next 24H Pt has h/o contact with Flu positive person and was placed on Influenza prophylaxis with Tamiflu
[2017-05-18] MEDS: Atorvastatin* 80 MG TAB PO SCH (17:38)
[2017-05-18] MEDS: Oseltamivir CAP* 75 MG CAP PO SCH (17:38)
[2017-05-19] MEDS: Insulin LISPRO* 1 UNITS UNIT SUBCUT SCH ×2 (09:20→12:30)
[2017-05-19] MEDS: Aspirin TAB* 325 MG PO SCH (09:21)
[2017-05-19] MEDS: amLODIPine TAB* 5 MG PO SCH (09:21)
[2017-05-19] MEDS: Clopidogrel TAB* 75 MG PO SCH (09:21)
[2017-05-19] MEDS: Lisinopril TAB* 10 MG PO SCH (09:22)
[2017-05-19] MEDS: Docusate CAP* 100 MG PO SCH (09:22)
[2017-05-19] MEDS: glipiZIDE TAB* 5 MG PO SCH (09:22)
[2017-05-19 12:50] VITALS: BP 154/82
--- NOTE | 2017-05-20 11:46 | DS ---
CC: [facility]. * DISCHARGE SUMMARY: DATE OF ADMISSION: 05/14/17 DATE OF DISCHARGE: 05/19/17 PRIMARY CARE PROVIDER: None. DISCHARGE DIAGNOSES: 1. Atheroembolic right hemispheric cerebrovascular accident with resultant problems with impulse control. 2. Uncontrolled hypertension. 3. Uncontrolled diabetes. SECONDARY DIAGNOSES: 1. History of diabetes. 2. History of hypertension. 3. History of medical noncompliance. MEDICATIONS AT DISCHARGE: Include: 1. Tamiflu 75 mg daily, to complete a 10 day prophylaxis treatment. Please note that patient was exposed to influenza patient with whom he was co- inhabiting in the same room. 2. Amlodipine 10 mg daily. 3. Aspirin 81 mg daily. 4. Atorvastatin 80 mg daily. 5. Glipizide 10 mg daily. 6. Lisinopril 10 mg daily. 7. Plavix 75 mg daily. DIET AT DISCHARGE: Include diabetic and low cholesterol. FOLLOWUP APPOINTMENT: Unfortunately, we were unable to get an appointment for the patient yet since his Medicaid application is still pending. The patient hopefully will get an appointment arranged by our office early next week. If he is not going to get any, he is kindly asked to see his physician at [facility] for the time being. The patient was given 5 days worth of all of his medications from our pharmacy by the time of discharge and the remaining medications were transferred electronically to [facility]. CONSULTATIONS DURING THE HOSPITAL STAY: Included Dr. Dion Saavedra from Neurology. LABORATORY DATA AND STUDIES PERFORMED DURING THE HOSPITAL STAY: Include: The patients sugars in the past 24 hours were ranging between 170 to 200 range. On 05/15/17, white blood cell was 5.3, hemoglobin of 13.6, hematocrit of 40, platelets of 143. Sodium was 136, potassium 4.5, chloride 103, carbon dioxide 28, BUN 14, creatinine 0.96. Liver function tests were unremarkable. At admission, his cholesterol profile showed triglycerides of 190, cholesterol total is 263, cholesterol LDL was 184 and HDL 41. The patient had a transthoracic echocardiogram obtained on 05/15/17, there is normal ejection fraction with an EF of 55% to 60%. A patent foramen ovale was not demonstrated color Dopplers. There was no evidence of aortic stenosis and trace mitral regurgitation and trace tricuspid regurgitation. The patient's brain MRI obtained on 05/16/17, impression: "Multiple foci of restricted diffusion consistent with subacute hemorrhagic infarct in the right frontal and anterior parietal lobes corresponding to right anterior cerebral artery distribution." Head CTA obtained on 05/14/17, impression: "Short segment high grade stenosis of right A2 segment of the level of the frontal horns of the lateral ventricles with limited flow distal to the stenosis. Negative for stenosis or occlusion in the M1 or M2 segments of the middle cerebral arteries. Variant termination of the diminutive basilar artery and superior cerebral arteries with patent posterior cerebral arteries supplied by the anterior circulation via patent posterior communication arteries. Neck angiogram showed the patient's right ventricular artery supplies the basilar artery. markedly diminutive left vertebral artery terminates at the left posterior inferior cerebral artery. There was negative significant stenosis of the carotid bilaterally. HOSPITALIZATION COURSE: Rodolfo Lainez is a 62-year-old male who was noted on 01/19 to be unsteady and behaving differently. The patient stated that it all started 3 or 4 days prior all of sudden when he started feeling dizzy and falling towards left. The patient was noted to have some minimal left-sided weakness but unsteady gait and to be very impulsive and tearful. CT of the brain noted possibility of the right hemispheric frontal stroke. He was admitted to the hospital. He was noted to have markedly increased systolic pressures in 210 range. The patient also had sugar noted to be 475 and a creatinine of 1.3. He stated that he knew that he was hypertensive and diabetic , but he had not taken any medications for the past 2 to 3 years. He was admitted to hospital and his acute kidney injury that was noted on admission resolved after rehydration. He was placed initially on Lantus and insulin Lispro and later on switched to glipizide 5 mg b.i.d. with good control of his sugars. His hemoglobin A1c was noted to be 12. His blood pressure was gradually better controlled with Norvasc and lisinopril on which he is going to go home. Dr. Saavedra saw patient in consultation and noted that due to patient's intracerebral artery stenosis, he is going to be placed on aspirin and Plavix. He was not a candidate for vascular intervention at this point. Throughout his hospital stay, the patient was noted to have minimal left-sided weakness that basically by the time of discharge resolved, but he still continued to have an unsteady gait and being very impulsive. He underwent physical therapy evaluation and he was deemed to be a good candidate to be discharged home back to his apartment. Unfortunately, we are unable to set him up with outpatient physical therapy services due to his not having insurance at this point. A person who was assisting with Medicaid sign up came in to evaluate the patient and assisted him with Medicaid application. I just hope that patient is going to have his Medicaid insurance in the next few days. For the time being, he was given 5 days supply of his medications to go home with. Once he gets Medicaid, he can sign up with a physician of his choice but our office is also working on to get him an appointment when his Medicaid is still pending. PHYSICAL EXAM AT THE TIME OF DISCHARGE: Blood pressure 154/82, heart rate of 77 and regular, respiratory rate 16, oxygen saturation 97% on room air, temperature of 98.3. General: The patient is a pleasant 62-year-old male who is in no acute distress. Alert, awake, and oriented x3. HEENT: Head atraumatic, normocephalic. Eyes: Pupils equal, round, and reactive to light and accommodation. Oropharynx clear. Mucosa moist. Neck: Supple. No JVD. No bruits bilaterally. Cardiovascular: Regular rate and rhythm. No murmur. Respiratory: Clear to auscultation bilaterally. Abdomen: Soft, nontender. Bowel sounds present in all 4 quadrants. Extremities: There is no edema. Pulses +2 bilaterally. No clubbing or cyanosis. On neuro evaluation, the patient had a wide gait but is steady on his feet without the walker at this point. He is rather impulsive and it is difficult for him to listen to commands before acting. Please note that this is a short summary of the patient's hospitalization. Please refer to further medical records for details. TIME SPENT: Approximately 45 minutes were spent on the patient's discharge. [id number]/[facility] #: [id number] ADONAY
== END 2017-05-19 13:39 | disposition home health service (06) | DRG 65 ==
LOC: ED 13:27 → MEDTELE 16:00
PROVIDERS: ADMIT Internal Medicine; ATTEND Internal Medicine
DX: I63.421 Cerebral infarction due to embolism of right anterior cerebral artery (principal); G81.94 Hemiplegia, unspecified affecting left nondominant side; N17.9 Acute kidney failure, unspecified; E11.65 Type 2 diabetes mellitus with hyperglycemia; E87.1 Hypo-osmolality and hyponatremia; F63.9 Impulse disorder, unspecified; I10 Essential (primary) hypertension; I08.1 Rheumatic disorders of both mitral and tricuspid valves; R26.81 Unsteadiness on feet; R40.2412 Glasgow coma scale score 13-15, at arrival to emergency department; E78.5 Hyperlipidemia, unspecified; Z82.3 Family history of stroke; Z91.14 Patient's other noncompliance with medication regimen; Z79.82 Long term (current) use of aspirin; Z79.02 Long term (current) use of antithrombotics/antiplatelets; Z79.84 Long term (current) use of oral hypoglycemic drugs; Z88.8 Allergy status to other drugs, medicaments and biological substances
CPT/HCPCS: 36415; 70450; 70496; 70498; 70551; 80048; 80053; 80061; 80307; 80320; 82375; 82607; 82746; 82947; 83036; 83090; 84439; 84443; 85025; 86038; 93005; 93306; 99284; A9270-GY; G0480; Q9967